=== PATIENT | male | born 1955 | race Caucasian/White ===

== ENCOUNTER 2019-07-20 08:42 | Day surgery (SDC) | payer MEDICARE ==
[~2019-07-20] VITALS: Ht 190.5 cm; Wt 117.9 kg
[~2019-07-20 08:42] MED LIST: ANTIOXIDANT FORMULA PO; FLUOXETINE40 MG PO; MELOXICAM7.5 MG PO; METOPROL TAR25 MG PO; NORVASC5 M1 PO; OMEPRAZOLE20 M2 PO
[2019-07-20 11:37] VITALS: BP 145/91
== END 2019-07-20 11:48 | disposition home or self-care (01) ==
LOC: ENDO 08:42 → ORM 10:30 → ENDO 10:30
PROVIDERS: ATTEND Surgery
PROC: 0DBM8ZX Excision of Descending Colon, Via Natural or Artificial Opening Endoscopic, Diagnostic (ICD-10-PCS; principal; 2019-07-20)
PROC: 0DBL8ZX Excision of Transverse Colon, Via Natural or Artificial Opening Endoscopic, Diagnostic (ICD-10-PCS; 2019-07-20)
PROC: 0DB48ZX Excision of Esophagogastric Junction, Via Natural or Artificial Opening Endoscopic, Diagnostic (ICD-10-PCS; 2019-07-20)
DX: Z12.11 Encounter for screening for malignant neoplasm of colon (principal); D12.4 Benign neoplasm of descending colon; K63.5 Polyp of colon; K21.9 Gastro-esophageal reflux disease without esophagitis; K44.9 Diaphragmatic hernia without obstruction or gangrene; I10 Essential (primary) hypertension; Z79.899 Other long term (current) drug therapy

== ENCOUNTER 2022-09-08 10:52 | Emergency (ER) | payer MEDICARE ==
[~2022-09-08] VITALS: Ht 190.5 cm; Wt 136.4 kg
[2022-09-08] MEDS ORDERED: AMOX/K CLAV875 M1 PO (11:03)
[2022-09-08] MEDS ORDERED: BACTRIM DS1 TAB PO (11:03)
[2022-09-08 11:14] VITALS: BP 143/93
== END 2022-09-08 11:28 | disposition home or self-care (01) ==
LOC: ED 10:52
DX: L03.211 Cellulitis of face (principal); I10 Essential (primary) hypertension